=== PATIENT | male | born 1960 | race Caucasian/White ===

== ENCOUNTER 2017-01-05 15:07 | Inpatient (IN) ==
--- NOTE | 2017-01-05 16:10 | Internal Med History&Physical ---
Date of Encounter: 01/05/17 Time of Encounter: 16:00 Assessment and Plan (1) Hypercapnic respiratory failure Current visit: No Status: Acute Resolved Qualifiers: Chronicity: unspecified Qualified Code(s): J96.92 - Respiratory failure, unspecified with hypercapnia (2) NSTEMI (non-ST elevated myocardial infarction) Current visit: No Status: Acute Resolved (3) Cor pulmonale (chronic) Current visit: No Status: Chronic (4) PEA (Pulseless electrical activity) Current visit: No Status: Resolved Resolved (5) Obstructive sleep apnea Current visit: No Status: Suspected Patient will be on BiPAP at night. (6) History of sudden cardiac arrest successfully resuscitated Current visit: No Status: Acute Patient had severe respiratory failure with respiratory acidosis. This probably contributed or caused his PEA. He was successfully resuscitated from the PEA arrest. (7) Pneumonia Current visit: No Status: Resolved Pneumonia appears to be resolved Qualifiers: Pneumonia type: due to other aerobic Gram-negative bacteria Laterality: right Lung location: lower lobe of lung Qualified Code(s): J15.6 - Pneumonia due to other aerobic Gram-negative bacteria Internal Medicine - H&P: HPI Chief complaint: Patient had respiratory failure. Admitted From: Hospital to Hospital Transfer Plans for Post Hospital Care: Home History of present illness: Mr. Barlow is a 56 year old male Patient apparently was getting weaker sleeping more incontinent trouble breathing. Family following" onset of the emergency room. Past Med Surg Social Fam HX - Past Medical History Medical history: atrial fibrillation, CHF, COPD, DVT Psychiatric history: no psych history - Social History Smoking Status: Current every day smoker Smokeless Tobacco Status: No Alcohol use: none Drug use: none Internal Medicine - H&P: Meds Multivitamin [Multi-Day Vitamins] 1 tab PO DAILY 12/12/16 [History] Apixaban [Eliquis] 5 mg PO BID #60 tablet 01/05/17 [Rx] Diltiazem CD (24hr) [Cardizem CD] 360 mg PO DAILY #30 cap.er.24h 01/05/17 [Rx] Furosemide [Lasix] 40 mg PO DAILY #30 tablet 01/05/17 [Rx] Levalbuterol Neb [Xopenex Neb] 0.63 mg IH Q6H PRN #120 vial.neb 01/05/17 [Rx] Metoprolol [Lopressor] 100 mg PO BID #60 tablet 01/05/17 [Rx] Quetiapine Fumarate [Seroquel] 50 mg PO HS #30 tablet 01/05/17 [Rx] Allergies No Known Allergies Allergy (Verified 12/12/16 13:22) All Systems PM: A 10-system review of systems was performed and is negative for pertinent findings except as documented above in the HPI. - Constitutional Vitals: Temp Pulse Resp BP Pulse Ox 97.8 F 92 18 115/79 98 01/05/17 16:05 01/05/17 16:05 01/05/17 16:05 01/05/17 16:05 01/05/17 16:05 - Head Head exam: Present: atraumatic, normal inspection, normocephalic - Neck Neck exam general surgery: Present: supple, trachea midline. Absent: lymphadenopathy - Respiratory Respiratory exam: Present: CTAB. Absent: accessory muscle use, rales, rhonchi, wheezes - Cardiovascular Cardiovascular exam: Present: RRR, +S1, +S2. Absent: diastolic murmur, gallop, rubs, systolic murmur - GI/Abdominal GI/Abdominal exam: Present: normal bowel sounds, soft, no peritoneal signs. Absent: distended, tenderness Internal Med - H&P Results - Labs Labs: Lab is pending
[2017-01-05] MEDS ORDERED: Levalbuterol Neb 0.63 MG/3 ML IH PRN (16:26)
[2017-01-05] MEDS: Metoprolol 100 MG TABLET PO SCH (22:17)
[2017-01-05] MEDS: APIXABAN 5 MG TABLET PO SCH (22:17)
[2017-01-06 05:53] LABS: Basophils % 0.5 %; Eosinophils # 0.3 K/mcL (0.0-0.6); Eosinophils % 3.4 %; Hematocrit 39.5 % (37.5-50.1); Hemoglobin 12.3 g/dL (12.9-16.9); Immature Granulocytes % 1.3 % (0-4); Lymphocytes # 1.4 K/mcL (0.6-4.6); Mean Corpuscular HGB Conc 31.1 g/dL (31.6-35.5); Mean Corpuscular Hemoglobin 27.9 pg (28.0-33.3); Mean Corpuscular Volume 89.6 fL (83.0-100.0); Mean Platelet Volume 10.1 fL (9.4-12.4); Monocytes # 0.7 K/mcL (0.0-1.3); Monocytes % 8.8 %; Neutrophils # 5.8 K/mcL (1.6-8.9); Platelet Count 188 K/mcL (140-400); Red Blood Count 4.41 M/mcL (4.19-5.50); Red Cell Distribution Width 14.6 % (11.5-14.5)
[2017-01-06 05:54] LABS: INR 1.4
[2017-01-06 05:57] LABS: Activated Partial Thrombo Time 29.5 Seconds (26.0-36.0)
[2017-01-06 06:04] LABS: BUN/Creatinine Ratio 23 (6-26); Blood Urea Nitrogen 17 mg/dL (8-26); Calcium 8.6 mg/dL (8.6-10.8); Carbon Dioxide 34 mEq/L (19-29); Chloride 99 mEq/L (98-109); Glucose 97 mg/dL (70-99); Osmolality,Calculated 289 (280-300); Potassium 3.7 mEq/L (3.5-4.5); Sodium 139 mEq/L (136-145); eGFR For African Americans > 60 (> 60); eGFR For Non-African Americans > 60 (> 60)
[2017-01-06] MEDS: Multivit/Ca/Min/Fe/FA 1 TAB TABLET PO SCH (09:36)
[2017-01-06] MEDS: APIXABAN 5 MG TABLET PO SCH ×2 (09:36→21:04)
[2017-01-06] MEDS: Diltiazem CD (24hr) 180 MG CAPSULE PO SCH (09:36)
[2017-01-06] MEDS: Furosemide 40 MG TABLET PO SCH (09:36)
[2017-01-06] MEDS: Metoprolol 100 MG TABLET PO SCH ×2 (09:36→21:05)
[2017-01-07] MEDS: Diltiazem CD (24hr) 180 MG CAPSULE PO SCH (09:52)
[2017-01-07] MEDS: APIXABAN 5 MG TABLET PO SCH ×2 (09:52→22:49)
[2017-01-07] MEDS: Multivit/Ca/Min/Fe/FA 1 TAB TABLET PO SCH (09:53)
[2017-01-07] MEDS: Metoprolol 100 MG TABLET PO SCH ×2 (09:53→22:49)
[2017-01-07] MEDS: Furosemide 40 MG TABLET PO SCH (09:54)
[2017-01-07] MEDS ORDERED: *HR* Warfarin 10 MG TABLET PO ONE (11:49)
[2017-01-08 05:28] LABS: INR 1.8; Prothrombin Time 19.8 Seconds (9.4-12.1)
[2017-01-08] MEDS: Metoprolol 100 MG TABLET PO SCH ×2 (09:03→20:49)
[2017-01-08] MEDS: Diltiazem CD (24hr) 180 MG CAPSULE PO SCH (09:03)
[2017-01-08] MEDS: APIXABAN 5 MG TABLET PO SCH ×2 (09:04→20:49)
[2017-01-08] MEDS: Multivit/Ca/Min/Fe/FA 1 TAB TABLET PO SCH (09:04)
[2017-01-08] MEDS: Furosemide 40 MG TABLET PO SCH (09:04)
--- NOTE | 2017-01-08 12:26 | Internal Med Progress Note ---
Date of Encounter: 01/08/17 Time of Encounter: 12:00 - Assessment and plan (1) Hypercapnic respiratory failure Current Visit: Yes Status: Acute Assessment and plan: Mostly resolved Qualifiers: Chronicity: unspecified Qualified Code(s): J96.92 - Respiratory failure, unspecified with hypercapnia (2) NSTEMI (non-ST elevated myocardial infarction) Current Visit: Yes Status: Acute Assessment and plan: C history (3) Cor pulmonale (chronic) Current Visit: No Status: Chronic (4) PEA (Pulseless electrical activity) Current Visit: No Status: Resolved Assessment and plan: Resolved (5) Obstructive sleep apnea Current Visit: No Status: Suspected (6) History of sudden cardiac arrest successfully resuscitated Current Visit: No Status: Acute (7) Pneumonia Current Visit: Yes Status: Resolved Assessment and plan: Resolved Qualifiers: Pneumonia type: due to other aerobic Gram-negative bacteria Laterality: right Lung location: lower lobe of lung Qualified Code(s): J15.6 - Pneumonia due to other aerobic Gram-negative bacteria - Time Spent With Patient less than 15 minutes - Subjective Interval history: No complaints, good O2 sats are fine during the day patient is using CPAP at night - Constitutional Vitals: Temp Pulse Resp BP Pulse Ox 100.1 F H 99 18 95/69 91 01/08/17 07:42 01/08/17 07:42 01/08/17 07:42 01/08/17 10:25 01/08/17 08:51 - Head Head exam: Present: atraumatic, normal inspection, normocephalic - Neck Neck exam general surgery: Present: supple, trachea midline. Absent: lymphadenopathy - Respiratory Respiratory exam: Present: CTAB. Absent: accessory muscle use, rales, rhonchi, wheezes - Cardiovascular Cardiovascular exam: Present: RRR, +S1, +S2. Absent: diastolic murmur, gallop, rubs, systolic murmur Internal Medicine: Result - Labs CBC & Chem 7: 01/06/17 05:15 01/06/17 05:15 Labs: Lab looks good - ABG Interpretation ABG results: PT/INR, D-dimer PT 19.8 Seconds (9.4-12.1) H 01/08/17 04:45 Consult Discharge Plan - Plan Referrals: Salinas Rey MD [Primary Care Provider] -
[2017-01-08] MEDS ORDERED: *HR* Warfarin 7.5 MG TABLET PO ONE (18:00)
[2017-01-09 05:18] LABS: INR 2.7
[2017-01-09] MEDS: Furosemide 40 MG TABLET PO SCH (07:59)
[2017-01-09] MEDS: Diltiazem CD (24hr) 180 MG CAPSULE PO SCH (07:59)
[2017-01-09] MEDS: APIXABAN 5 MG TABLET PO SCH (08:00)
[2017-01-09] MEDS: Metoprolol 100 MG TABLET PO SCH ×2 (08:00→20:44)
[2017-01-09] MEDS: Multivit/Ca/Min/Fe/FA 1 TAB TABLET PO SCH (08:00)
[2017-01-09] MEDS ORDERED: *HR* Warfarin 7.5 MG TABLET PO ONE (18:00)
--- NOTE | 2017-01-09 22:58 | Internal Med Progress Note ---
Date of Encounter: 01/09/17 Time of Encounter: 22:56 - Assessment and plan (1) Physical deconditioning Current Visit: Yes Status: Chronic Assessment and plan: Physical deconditioning status post respiratory failure and COPD. Requiring BiPAP at night. Respiratory status stable at this time. Tolerating PTOT. We will continue to work and improving strength, endurance, independent ADL (2) Dermatitis Current Visit: Yes Status: Acute Assessment and plan: Unknown etiology. We will try Solu-Medrol 125 IM - Time Spent With Patient less than 15 minutes - Subjective Interval history: Feeling better in terms of his respiratory function. Rash comes and goes. Benadryl helps. - Constitutional Vitals: Temp Pulse Resp BP Pulse Ox 98.2 F 107 15 103/76 90 01/09/17 19:01 01/09/17 19:01 01/09/17 19:01 01/09/17 19:01 01/09/17 19:01 General appearance: Present: A&O X 3, morbidly obese, pleasant, no acute distress - Respiratory Respiratory exam: Present: decreased breath sounds. Absent: prolonged expiratory phase, respiratory distress - Cardiovascular Cardiovascular exam: Present: RRR, +S1, +S2. Absent: diastolic murmur, gallop, rubs, systolic murmur - GI/Abdominal GI/Abdominal exam: Present: normal bowel sounds, soft, no peritoneal signs. Absent: distended, tenderness - Extremities Exam Extremities exam: Present: pedal edema - Neurological Exam Neurological exam: Present: CN II-XII intact, oriented X3, no focal deficits. Absent: pronater drift, facial droop, speech deficit Internal Medicine: Result - Labs CBC & Chem 7: 01/06/17 05:15 01/06/17 05:15 - ABG Interpretation ABG results: PT/INR, D-dimer PT 30.0 Seconds (9.4-12.1) H D 01/09/17 05:08 Consult Discharge Plan - Plan Referrals: Salinas Rey MD [Primary Care Provider] -
[2017-01-10 05:32] LABS: Basophils % 0.2 %; Hematocrit 38.4 % (37.5-50.1); Hemoglobin 12.2 g/dL (12.9-16.9); Immature Granulocytes % 0.8 % (0-4); Lymphocytes # 0.8 K/mcL (0.6-4.6); Lymphocytes % 15.5 %; Mean Corpuscular HGB Conc 31.8 g/dL (31.6-35.5); Mean Corpuscular Hemoglobin 27.9 pg (28.0-33.3); Mean Corpuscular Volume 87.7 fL (83.0-100.0); Mean Platelet Volume 10.2 fL (9.4-12.4); Monocytes # 0.1 K/mcL (0.0-1.3); Monocytes % 2.6 %; Neutrophils # 4.1 K/mcL (1.6-8.9); Platelet Count 162 K/mcL (140-400); Red Blood Count 4.38 M/mcL (4.19-5.50); Red Cell Distribution Width 14.2 % (11.5-14.5); Segmented Neutrophils % 80.9 %
[2017-01-10 05:33] LABS: INR 3.8; Prothrombin Time 42.4 Seconds (9.4-12.1)
[2017-01-10 05:51] LABS: BUN/Creatinine Ratio 19 (6-26); Blood Urea Nitrogen 15 mg/dL (8-26); Calcium 8.8 mg/dL (8.6-10.8); Carbon Dioxide 29 mEq/L (19-29); Chloride 99 mEq/L (98-109); Glucose 168 mg/dL (70-99); Osmolality,Calculated 293 (280-300); Potassium 4.2 mEq/L (3.5-4.5); Sodium 139 mEq/L (136-145); eGFR For African Americans > 60 (> 60); eGFR For Non-African Americans > 60 (> 60)
[2017-01-10] MEDS: Multivit/Ca/Min/Fe/FA 1 TAB TABLET PO SCH (08:02)
[2017-01-10] MEDS: Furosemide 40 MG TABLET PO SCH (08:02)
[2017-01-10] MEDS: Diltiazem CD (24hr) 180 MG CAPSULE PO SCH (08:02)
[2017-01-10] MEDS: Metoprolol 100 MG TABLET PO SCH ×2 (08:02→21:54)
--- NOTE | 2017-01-10 14:01 | Internal Med Progress Note ---
Date of Encounter: 01/10/17 Time of Encounter: 14:00 - Assessment and plan (1) Hypercapnic respiratory failure Current Visit: Yes Status: Acute Assessment and plan: Much improved this is resolved Qualifiers: Chronicity: unspecified Qualified Code(s): J96.92 - Respiratory failure, unspecified with hypercapnia (2) NSTEMI (non-ST elevated myocardial infarction) Current Visit: Yes Status: Acute Assessment and plan: No complications at the moment (3) Cor pulmonale (chronic) Current Visit: No Status: Chronic (4) Obstructive sleep apnea Current Visit: No Status: Suspected (5) History of sudden cardiac arrest successfully resuscitated Current Visit: No Status: Acute (6) Pneumonia Current Visit: Yes Status: Resolved Assessment and plan: Resolved Qualifiers: Pneumonia type: due to other aerobic Gram-negative bacteria Laterality: right Lung location: lower lobe of lung Qualified Code(s): J15.6 - Pneumonia due to other aerobic Gram-negative bacteria - Time Spent With Patient less than 15 minutes - Subjective Interval history: Patient's only problem is he has had a skin rash and the only new drug is Coumadin. So, concerned about the - Constitutional Vitals: Temp Pulse Resp BP Pulse Ox 97.4 F L 90 18 137/80 92 01/10/17 07:00 01/10/17 07:50 01/10/17 07:00 01/10/17 08:05 01/10/17 07:50 General appearance: Present: A&O X 3, morbidly obese, pleasant, no acute distress - Head Head exam: Present: atraumatic, normal inspection, normocephalic - Neck Neck exam general surgery: Present: supple, trachea midline. Absent: lymphadenopathy - Respiratory Respiratory exam: Present: CTAB. Absent: accessory muscle use, rales, rhonchi, wheezes - Cardiovascular Cardiovascular exam: Present: RRR, +S1, +S2. Absent: diastolic murmur, gallop, rubs, systolic murmur - GI/Abdominal GI/Abdominal exam: Present: normal bowel sounds, soft, no peritoneal signs. Absent: distended, tenderness Internal Medicine: Result - Labs CBC & Chem 7: 01/10/17 04:50 01/10/17 04:50 Labs: Short CBC 01/10/17 Range/Units 04:50 WBC 5.0 (4.3-11.1) K/mcL Hgb 12.2 L (12.9-16.9) g/dL Hct 38.4 (37.5-50.1) % Plt Count 162 (140-400) K/mcL Neutrophils # 4.1 (1.6-8.9) K/mcL BMP 01/10/17 04:50 Sodium 139 Potassium 4.2 Chloride 99 Carbon Dioxide 29 BUN 15 Creatinine 0.81 Glucose 168 H Calcium 8.8 - ABG Interpretation ABG results: PT/INR, D-dimer PT 42.4 Seconds (9.4-12.1) H 01/10/17 04:50 Consult Discharge Plan - Plan Referrals: Salinas Rey MD [Primary Care Provider] -
[2017-01-10] MEDS ORDERED: PredniSONE 20 MG TABLET PO ONE (16:38)
[2017-01-11 05:41] LABS: INR 4.4; Prothrombin Time 50.2 Seconds (9.4-12.1)
[2017-01-11] MEDS: Furosemide 40 MG TABLET PO SCH (08:46)
[2017-01-11] MEDS: Multivit/Ca/Min/Fe/FA 1 TAB TABLET PO SCH (08:46)
[2017-01-11] MEDS: Metoprolol 100 MG TABLET PO SCH ×2 (08:46→20:34)
[2017-01-11] MEDS: Diltiazem CD (24hr) 180 MG CAPSULE PO SCH (08:46)
--- NOTE | 2017-01-11 13:34 | Internal Med Progress Note ---
Date of Encounter: 01/11/17 Time of Encounter: 13:00 - Assessment and plan (1) Hypercapnic respiratory failure Current Visit: Yes Status: Acute Assessment and plan: Resolved Qualifiers: Chronicity: unspecified Qualified Code(s): J96.92 - Respiratory failure, unspecified with hypercapnia (2) NSTEMI (non-ST elevated myocardial infarction) Current Visit: Yes Status: Acute Assessment and plan: Resolved (3) Cor pulmonale (chronic) Current Visit: No Status: Chronic (4) Obstructive sleep apnea Current Visit: No Status: Suspected Assessment and plan: Awaiting CPAP to help this problem in at bedtime (5) History of sudden cardiac arrest successfully resuscitated Current Visit: No Status: Acute Assessment and plan: Resolved (6) Pneumonia Current Visit: Yes Status: Resolved Assessment and plan: Resolved Qualifiers: Pneumonia type: due to other aerobic Gram-negative bacteria Laterality: right Lung location: lower lobe of lung Qualified Code(s): J15.6 - Pneumonia due to other aerobic Gram-negative bacteria - Time Spent With Patient less than 15 minutes - Subjective Interval history: Derrick is doing very well. In fact the rash is even improved. Is less erythematous today. pruritic changes though. He states it does not itch. I cannot believe that he may be allergic to warfarin which means were graft failure out of different way since he had a history of a PE. - Constitutional Vitals: Temp Pulse Resp BP Pulse Ox 97.4 F L 95 20 117/74 92 01/11/17 07:23 01/11/17 07:23 01/11/17 07:23 01/11/17 07:23 01/11/17 07:23 General appearance: Present: A&O X 3, morbidly obese, pleasant, no acute distress - Head Head exam: Present: atraumatic, normal inspection, normocephalic - Neck Neck exam general surgery: Present: supple, trachea midline. Absent: lymphadenopathy - Respiratory Respiratory exam: Present: CTAB. Absent: accessory muscle use, rales, rhonchi, wheezes - Cardiovascular Cardiovascular exam: Present: RRR, +S1, +S2. Absent: diastolic murmur, gallop, rubs, systolic murmur Internal Medicine: Result - Labs CBC & Chem 7: 01/10/17 04:50 01/10/17 04:50 Labs: Labs okay - ABG Interpretation ABG results: PT/INR, D-dimer PT 50.2 Seconds (9.4-12.1) H* 01/11/17 05:15 Consult Discharge Plan - Plan Referrals: Salinas Rey MD [Primary Care Provider] -
[2017-01-11] MEDS ORDERED: PredniSONE 20 MG TABLET PO ONE (16:10)
[2017-01-12 05:34] LABS: INR 2.8; Prothrombin Time 31.1 Seconds (9.4-12.1)
[2017-01-12] MEDS: Furosemide 40 MG TABLET PO SCH (08:24)
[2017-01-12] MEDS: Multivit/Ca/Min/Fe/FA 1 TAB TABLET PO SCH (08:24)
[2017-01-12] MEDS: Metoprolol 100 MG TABLET PO SCH ×2 (08:24→20:39)
[2017-01-12] MEDS: Diltiazem CD (24hr) 180 MG CAPSULE PO SCH (08:24)
[2017-01-12] MEDS ORDERED: PredniSONE 20 MG TABLET PO SCH (09:00)
--- NOTE | 2017-01-12 12:19 | Internal Med Progress Note ---
Date of Encounter: 01/12/17 Time of Encounter: 12:17 - Assessment and plan (1) Physical deconditioning Current Visit: Yes Status: Chronic Assessment and plan: Physical deconditioning status post respiratory failure and COPD. Requiring BiPAP at night. Respiratory status stable at this time. Tolerating PTOT. We will continue to work and improving strength, endurance, independent ADL (2) Dermatitis Current Visit: Yes Status: Acute Assessment and plan: Unknown etiology. No improvement with steroids and Benadryl. May be drug related. (3) Edema extremities Current Visit: Yes Status: Chronic Assessment and plan: Increasing swelling of the lower extremities. Right worse than the left. We will increase diuretics. Also ordered Doppler studies to rule out DVT. - Time Spent With Patient less than 15 minutes - Subjective Interval history: Feeling better in terms of his respiratory function. Still complains of lower leg swelling. Right worse than the left. Complains of nonpruritic rash. No shortness of breath. No chest pain. - Constitutional Vitals: Temp Pulse Resp BP Pulse Ox 97.4 F L 88 16 111/79 95 01/12/17 07:00 01/12/17 07:00 01/12/17 07:00 01/12/17 07:00 01/12/17 07:00 General appearance: Present: A&O X 3, morbidly obese, pleasant, no acute distress - Respiratory Respiratory exam: Present: CTAB. Absent: accessory muscle use, rales, rhonchi, wheezes - Cardiovascular Cardiovascular exam: Present: RRR, +S1, +S2. Absent: diastolic murmur, gallop, rubs, systolic murmur - GI/Abdominal GI/Abdominal exam: Present: normal bowel sounds, soft, no peritoneal signs. Absent: distended, tenderness - Extremities Exam Extremities exam: Present: pedal edema - Skin Skin exam: Present: rash Internal Medicine: Result - Labs CBC & Chem 7: 01/10/17 04:50 01/10/17 04:50 - ABG Interpretation ABG results: PT/INR, D-dimer PT 31.1 Seconds (9.4-12.1) H 01/12/17 04:55 Consult Discharge Plan - Plan Referrals: Salinas Rey MD [Primary Care Provider] -
--- NOTE | 2017-01-12 15:24 | Venous Imaging Report ---
LE Venous Duplex Patient Name:Reji Barlow Order Number:[id number] Procedure Date:01/12/2017 Date:1960ge:56 yrs Gender:Male Location:[facility] Room #: 114 [employer] Worker:Amber Bradford RVT Referring MD:Arron Hebert MD mental telepathist:Salinas Rey MD Reading MD:Jose Rafael Caballero MD , FACS Primary Indications:right leg swelling, history of DVT Secondary Indications: Risk Factors Yes/No Anticoagulants Yes Hx of DVT Yes Impressions: Right lower extremity: normal superficial and deep exam. Left lower extremity: normal contralateral exam. Recommendations: Critical findings reported to Nurse in person by Amber Bradford RVT. Findings Venous Duplex Results: Right: Venous imaging of the lower extremity reveals full patency and normal vessel compressibility of the right distal iliac, right common femoral, right superficial femoral, right popliteal, right posterior tibial, right peroneal, right great saphenous and right lesser saphenous. Doppler signals in the evaluated veins were normal. Left: Venous imaging of the lower extremity reveals full patency and normal vessel compressibility of the left common femoral. Doppler signals in the evaluated veins were normal. Lower Extremity Venous Duplex Side Vein Compress Spontaneous Flow Augment Diameter (cm) Depth (cm) Right Distal Iliac Normal Yes Phasic Yes Right Common Femoral Normal Yes Phasic Yes Right Superficial Femoral Normal Yes Phasic Yes Right Popliteal Normal Yes Phasic Yes Right Posterior Tibial Normal Yes Phasic Yes Right Peroneal Normal Yes Phasic Yes Right Great Saphenous Normal Yes Phasic Yes Right Lesser Saphenous Normal Yes Phasic Yes Left Common Femoral Normal Yes Phasic Yes Updated by Jose Rafael Caballero MD, FACS on 01/12/2017 3:17:46 PM Jose Rafael Caballero MD electronically signed on 01/12/2017 3:18:10 PM with status of Final
--- NOTE | 2017-01-12 16:22 | Psychological Evaluation ---
Date of Encounter: 01/12/17 Time of Encounter: 10:30 History of Present Illness History of present illness: Mr. Barlow is a 56 year old male admitted to [facility] for rehabilitation following hypercapnic respiratory failure and myocardial infarction. He was seen on this date to assess his current cognitive and emotional functioning. Past Medical History Medical history: Significant for sleep apnea and sudden cardiac arrest (successfully resuscitated ). Mr. Barlow reported that he has not been followed by any medical professional in many years. He reported that he typically avoids seeing a doctor. - Psychiatric History Additional Psychiatric History: There is no history of psychiatric hospitalization or mental health issues. He denied any history of depression or anxiety. There is no family history of psychiatric or mental health issues. Home Medications and Allergies Multivitamin [Multi-Day Vitamins] 1 tab PO DAILY 12/12/16 [History] Apixaban [Eliquis] 5 mg PO BID #60 tablet 01/05/17 [Rx] Diltiazem CD (24hr) [Cardizem CD] 360 mg PO DAILY #30 cap.er.24h 01/05/17 [Rx] Furosemide [Lasix] 40 mg PO DAILY #30 tablet 01/05/17 [Rx] Levalbuterol Neb [Xopenex Neb] 0.63 mg IH Q6H PRN #120 vial.neb 01/05/17 [Rx] Metoprolol [Lopressor] 100 mg PO BID #60 tablet 01/05/17 [Rx] Quetiapine Fumarate [Seroquel] 50 mg PO HS #30 tablet 01/05/17 [Rx] Allergies No Known Allergies Allergy (Verified 12/12/16 13:22) Social History - Social History Social History: Mr. Barlow lives with his girlfriend (Iamn) and their 11-year-old son (Obed) . He was for 20 years and reported that he and his ex- remain on friendly terms. They did not have any children. Mr. Ortega's girlfriend has a 19 -year-old son from a previous relationship who calls Mr. Ortega's "dad". Mr. Barlow is a high school graduate. 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 He worked in [employer] for over 30 years. He is currently not receiving any income and is not on disability. 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 Social support system consists of his neighbors and his girlfriend. He spends his days "piddling around", mowing the yard and doing yard work. - Tobacco Use Smoking Status: Current every day smoker (He reported that he had stopped smoking for 3 years and resumed smoking two weeks before his heart attack.) - Alcohol Use Alcohol Use: none Cognitive/Emotional Assessment - Cognitive Ability Additional Findings: Mr. Barlow was alert, attentive and fully oriented. Speech was clear, fluent and effective. Thought processes were logical, coherent and goal-directed. He was able to do rote but not simple mental arithmetic. Confrontational naming was within normal limits and there did not appear to be any difficulties with auditory comprehension. On a task of delayed verbal recall, he performed within the severely impaired range. His performance was only slightly improved with recognition cueing. He displayed problems with encoding and retrieval of new information. - Emotional Status Additional Findings: Mr. Barlow was friendly, pleasant and cooperative. He displayed appropriate eye contact and was able to sit for the duration of this interview without obvious signs of pain or discomfort. He described his mood as "pretty good" but reported that he wants to go home. When we talked in greater detail about events surrounding his recent heart attack and hospitalization, he became tearful and reported that he has become increasingly aware that he needs to take care of himself "for my son". 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 Barlow in an inpatient at [facility] and monitor his mood/emotional adjustment. Will also provide information regarding importance of medical compliance and being proactive in his healthcare. Procedures - Session Time Session Start Time: 10:30 Session Stop Time: 11:00
[2017-01-13 05:23] LABS: Prothrombin Time 21.9 Seconds (9.4-12.1)
[2017-01-13] MEDS: Multivit/Ca/Min/Fe/FA 1 TAB TABLET PO SCH (08:27)
[2017-01-13] MEDS: Furosemide 40 MG TABLET PO SCH (08:27)
[2017-01-13] MEDS: Diltiazem CD (24hr) 180 MG CAPSULE PO SCH (08:27)
[2017-01-13] MEDS: Metoprolol 100 MG TABLET PO SCH ×2 (08:27→20:14)
--- NOTE | 2017-01-13 14:46 | Discharge Summary ---
Date of Encounter: 01/13/17 Time of Encounter: 14:42 - Discharge Diagnosis (1) Physical deconditioning Priority: Primary Status: Chronic (2) Dermatitis Priority: Secondary Status: Acute Comments: Unknown etiology. Unlikely secondary to Coumadin. We will restart Coumadin. This trial of prednisone. (3) Edema extremities Priority: Secondary Status: Chronic Comments: Improved with Lasix. - Discharge Medications Prescriptions: PredniSONE 60 mg PO DAILY #15 tablet Warfarin [Coumadin] 7.5 mg PO DAILY@1800 #30 tablet Home Medications: Multivitamin [Multi-Day Vitamins] 1 tab PO DAILY 12/12/16 [History] Diltiazem CD (24hr) [Cardizem CD] 360 mg PO DAILY #30 cap.er.24h 01/05/17 [Rx] Furosemide [Lasix] 40 mg PO DAILY #30 tablet 01/05/17 [Rx] Levalbuterol Neb [Xopenex Neb] 0.63 mg IH Q6H PRN #120 vial.neb 01/05/17 [Rx] Metoprolol [Lopressor] 100 mg PO BID #60 tablet 01/05/17 [Rx] Quetiapine Fumarate [Seroquel] 50 mg PO HS #30 tablet 01/05/17 [Rx] PredniSONE 60 mg PO DAILY #15 tablet 01/13/17 [Rx] Warfarin [Coumadin] 7.5 mg PO DAILY@1800 #30 tablet 01/13/17 [Rx] Allergies/Adverse Reactions: Allergies No Known Allergies Allergy (Verified 12/12/16 13:22) Procedures/tests Complete & Pending: Procedures Performed prior 72 hours Category Date Time Status Venous Doppler [EV venous imaging LE RT] Stat Y 01/12/17 12:20 Completed Date of admission: 01/05/17 15:20 Primary care physician: Salinas Rey MD Consults: 01/05/17 16:28 Consult to Nutrition [CONS] Routine Comment: Consulting Provider: NUTRITION Reason for Dietary Consult: Diet Education Consult to Occupational Therapy [CONS] Routine Comment: eval and treat Consult to Physical Therapy [CONS] Routine Comment: eval and treat Consult to Recreational Therapy [CONS] Routine Comment: Consult to Rn Family [CONS] Routine Reason for SW Consult: for discharge planning 01/07/17 19:03 Consult to Psychology [CONS] Routine Consulting Provider: McEntyre,Terri Reason for Consult: swing patient Call Completed: No Discharging clinician: Lucho Hebert Anticipated date of discharge: 01/14/17 - Patient Status Disposition: Home, Self-Care Condition: Good Functional capacity at discharge: independent ambulation Overall status at discharge: patient is progressing back to baseline - Discharge Instructions Instructions: Acute Respiratory Distress Syndrome (DC) Follow Up With: Salinas Rey MD [Primary Care Provider] - - Diet and Activity Activity: increase activity as tolerated Diet: advance to your usual diet Interval History: 56-year-old male admitted to this facility for rehabilitation after respiratory failure. He required BiPAP at night. With PT OT, patient improved to a point where he was ambulating with minimal difficulty. He had edema on arrival. He was given Lasix 40 mg twice a day which adequately diuresed him. He had a right lower leg swelling more than the left. Doppler studies was done to rule out DVT. It was negative. He also developed a nonpruritic rash on his trunk and extremities. Initially it was thought that it was from his Coumadin. His Coumadin was discontinued but he continues to have the rash. Coumadin was restarted. Prednisone was also initiated. Today he states that he has no shortness of breath no chest pain and wants to go home in the morning. The patient will be discharged in the morning. Hospital course: Mr. Barlow is a 56 year old male Time spent discussing smoking cessation with patient: more than 10 minutes - Time Spent with Patient Total time spent providing and/or coordinating discharge services: Less than 30 minutes - Constitutional Vitals: Temp Pulse Resp BP Pulse Ox 98.8 F 84 18 98/69 94 01/13/17 07:28 01/13/17 07:28 01/13/17 07:28 01/13/17 07:28 01/13/17 13:55 General appearance: Present: A&O X 3, morbidly obese, pleasant, no acute distress - Respiratory Respiratory exam: Present: CTAB. Absent: accessory muscle use, rales, rhonchi, wheezes - Cardiovascular Cardiovascular exam: Present: RRR, +S1, +S2. Absent: diastolic murmur, gallop, rubs, systolic murmur - GI/Abdominal GI/Abdominal exam: Present: normal bowel sounds, soft, no peritoneal signs. Absent: distended, tenderness - Expanded Lower Extremities Exam Lower Leg exam: Present: swelling - Skin Skin exam: Present: rash (Scattered macular papular erythematous lesions to his trunk and extremities. It does not tracy to pressure. No evidence of petechiae. No evidence of infection.)
[2017-01-13] MEDS: PredniSONE 20 MG TABLET PO SCH (16:14)
[2017-01-13] MEDS ORDERED: *HR* Warfarin 7.5 MG TABLET PO SCH (18:00)
[2017-01-14 05:47] LABS: INR 1.8; Prothrombin Time 19.4 Seconds (9.4-12.1)
[2017-01-14 07:23] VITALS: BP 105/64
[2017-01-14] MEDS: Diltiazem CD (24hr) 180 MG CAPSULE PO SCH (09:28)
[2017-01-14] MEDS: Furosemide 40 MG TABLET PO SCH (09:28)
[2017-01-14] MEDS: PredniSONE 20 MG TABLET PO SCH (09:28)
[2017-01-14] MEDS: Metoprolol 100 MG TABLET PO SCH (09:28)
[2017-01-14] MEDS: Multivit/Ca/Min/Fe/FA 1 TAB TABLET PO SCH (09:29)
== END 2017-01-14 11:15 | disposition home or self-care (01) | DRG 189 ==
LOC: INPGRE 15:20
PROVIDERS: ADMIT Internal Medicine; ATTEND Internal Medicine